=== PATIENT | male | born 1955 | race Caucasian/White ===

== ENCOUNTER 2023-09-18 17:06 | Emergency (ER) | payer MEDICARE, OTHER ==
[2023-09-18] MEDS: Acetaminophen 325 MG Tab PO ONE (22:20)
[2023-09-18] MEDS: Diphtheria,Pertussis(Acell),Tetanus Vaccine 0.5 ML Syringe IM ONE (22:22)
== END 2023-09-18 23:50 | disposition home or self-care (01) ==
LOC: JD.ED 17:06
DX: S62.661A Nondisplaced fracture of distal phalanx of left index finger, initial encounter for closed fracture (principal); Z23 Encounter for immunization; W23.0XXA Caught, crushed, jammed, or pinched between moving objects, initial encounter
CPT/HCPCS: 73140; 90471; 90715; 99283; A9270; 29130; 99282